=== PATIENT | female | born 1950 | race American Indian/Alaskan Native ===

== ENCOUNTER 2017-04-03 10:48 | Outpatient (CLI) | payer MEDICARE ==
--- NOTE | 2017-04-03 12:06 | XRay Report ---
Chest 2 views: History: Cough. Findings: Borderline cardiomegaly. Trachea is midline. No consolidation, pneumothorax or pleural effusion. Impression: No acute cardiopulmonary findings.
== END 2017-04-03 10:49 | disposition home or self-care (01) ==
LOC: XRAY 10:48
PROVIDERS: ATTEND Internal Medicine
DX: R05 Cough (principal)
CPT/HCPCS: 71020